=== PATIENT | male | born 1990 | race African-American/Black ===

== ENCOUNTER 2018-12-27 09:16 | Emergency (ER) | payer SELFPAY ==
[2018-12-27 09:31] VITALS: BP 137/75
[2018-12-27] MEDS ORDERED: METHOCARBAMOL 750 MG TABLET PO ONE (09:47)
[2018-12-27] MEDS ORDERED: IBUPROFEN 600 MG TABLET PO ONE (09:47)
--- NOTE | 2018-12-27 09:50 | ER Document Report ---
HPI - HPI Time Seen by Provider: 12/27/18 09:41 Notes: Patient is otherwise healthy 28-year-old male presenting to the emergency department with chief complaint of left-sided neck pain that radiates down into his left shoulder and left arm. Patient reports he woke up with this pain approximately 10 days ago. He denies taking any medications for this. He denies any direct trauma to the area. Past Medical History - General Information source: Patient - Social History Smoking Status: Never Smoker Frequency of alcohol use: None Drug Abuse: None Family History: None Pulmonary Medical History: Reports: Hx Asthma Surgical Hx: Negative - Immunizations Immunizations up to date: Yes Hx Diphtheria, Pertussis, Tetanus Vaccination: Yes Vertical Provider Document - CONSTITUTIONAL Notes: PHYSICAL EXAMINATION: GENERAL: Well-appearing, well-nourished and in no acute distress. HEAD: Atraumatic, normocephalic. EYES: Pupils equal round extraocular movements intact, conjunctiva are normal. ENT: Nares patent NECK: Normal range of motion LUNGS: No respiratory distress Musculoskeletal: Tenderness to palpation along left lateral neck and to left shoulder. No vertebral tenderness, step-off or deformity. NEUROLOGICAL: Normal speech, normal gait. PSYCH: Normal mood, normal affect. SKIN: Warm, Dry, normal turgor, no rashes or lesions noted. - INFECTION CONTROL TRAVEL OUTSIDE OF THE [place] IN LAST 30 DAYS: No Course - Re-evaluation Re-evalutation: Patient's history as well as exam are consistent with torticollis. No vertebral tenderness, step-off or deformity, no concern for meningitis as patient has been otherwise well and has not had fever or headache. Patient will be discharged home on muscle relaxers and instructed to take ibuprofen. Patient is in agreement with this plan. The patient's emergency department workup and current diagnosis were explained to the patient and or family. Follow-up instructions were provided. Medications if prescribed were discussed. Instructions for when to return to the emergency department including specific worrisome symptoms were discussed with the patient and/or family. - Vital Signs Vital signs: Temp Pulse Resp BP Pulse Ox 97.5 F 81 16 137/75 H 96 12/27/18 09:29 12/27/18 09:29 12/27/18 09:29 12/27/18 09:29 12/27/18 09:29 Discharge - Discharge Clinical Impression: Neck pain Left shoulder pain Qualifiers: Chronicity: acute Qualified Code(s): M25.512 - Pain in left shoulder Condition: Stable Disposition: HOME, SELF-CARE Additional Instructions: Please take medication as prescribed. Please also take ibuprofen 600 mg every 6 hours. I expect that your symptoms will improve over the next 3 to 5 days. Please return to the emergency department for worsening symptoms such as worsening pain, development of fever or inability to move your neck. Prescriptions: Methocarbamol [Robaxin 750 mg Tablet] 750 mg PO Q4 #20 tablet Forms: Return to Work
== END 2018-12-27 09:56 | disposition home or self-care (01) ==
LOC: ER 09:16
DX: M54.2 Cervicalgia (principal); M25.512 Pain in left shoulder
CPT/HCPCS: 99283; J3490

== ENCOUNTER 2019-09-17 11:05 | Emergency (ER) | payer SELFPAY ==
[2019-09-17] MEDS ORDERED: IBUPROFEN 800 MG TABLET PO ONE (11:23)
--- NOTE | 2019-09-17 11:26 | ER Document Report ---
ED Extremity Problem, Lower - General Chief Complaint: Foot Injury Stated Complaint: FALL/RIGHT FOOT PAIN Time Seen by Provider: 09/17/19 11:17 Primary Care Provider: SARTHAK HAGER DPM [ACTIVE STAFF] - Follow up as needed Mode of Arrival: Wheelchair Information source: Patient Notes: 28-year-old male presented to ED for complaint of right foot pain he [place] then [place] hit his foot on the stair above him. He states that was about 4 days ago. He states the pain has been continuously getting worse. He states his pain is a 3 out of 5 when he is resting and 5 out of 5 when he is walking. He states he does smoke 5 cigarettes a day drinks monthly does not do any illicit drugs. He works at [employer] and lives with his family. Patient is alert oriented respirations regular nonlabored speaking in full sentences. TRAVEL OUTSIDE OF THE [place] IN LAST 30 DAYS: No - HPI Patient complains to provider of: Injury, Pain Location: Foot - Right great toe and behind the great toe Occurred: Other - 4 days ago Where: Public place Onset/Duration: Gradual, Worse Quality of pain: Sharp Severity: Moderate Pain Level: 3 Context: Other - Hit toe on step Recent injury: Yes Associated symptoms: Painful ambulation Exacerbated by: Hanging down, Movement, Walking Relieved by: Elevation, Ice, Rest - Related Data Allergies/Adverse Reactions: No Known Allergies Allergy (Verified 12/27/18 09:48) Past Medical History - General Information source: Patient - Social History Smoking Status: Current Every Day Smoker Cigarette use (# per day): Yes - 5 cigarettes a day Smoking Education Provided: Yes - 4 minutes Frequency of alcohol use: Occasional Drug Abuse: None Lives with: Family Family History: None - Past Medical History Cardiac Medical History: Reports: None Pulmonary Medical History: Reports: Hx Asthma EENT Medical History: Reports: None Neurological Medical History: Reports: None Endocrine Medical History: Reports: None Renal/ Medical History: Reports: None Malignancy Medical History: Reports None GI Medical History: Reports: None Musculoskeletal Medical History: Reports None Skin Medical History: Reports None Psychiatric Medical History: Reports: None Traumatic Medical History: Reports: None Infectious Medical History: Reports: None Surgical Hx: Negative Past Surgical History: Reports: None - Immunizations Immunizations up to date: Yes Hx Diphtheria, Pertussis, Tetanus Vaccination: Yes Review of Systems - Review of Systems Constitutional: No symptoms reported EENT: No symptoms reported Cardiovascular: No symptoms reported Respiratory: No symptoms reported Gastrointestinal: No symptoms reported Genitourinary: No symptoms reported Male Genitourinary: No symptoms reported Musculoskeletal: Other - Right foot pain Skin: Other - Bruising to right great toe and just behind Hematologic/Lymphatic: No symptoms reported Neurological/Psychological: No symptoms reported -: Yes All other systems reviewed and negative Physical Exam - Vital signs Vitals: Temp Pulse Resp BP Pulse Ox 97.6 F 54 L 14 115/61 99 09/17/19 11:09 09/17/19 11:09 09/17/19 11:09 09/17/19 11:09 09/17/19 11:09 Interpretation: Normal - General General appearance: Appears well, Alert - HEENT Head: Normocephalic, Atraumatic Eyes: Normal Pupils: PERRL - Respiratory Respiratory status: No respiratory distress Chest status: Nontender Breath sounds: Normal Chest palpation: Normal - Cardiovascular Rhythm: Regular Heart sounds: Normal auscultation Murmur: No - Abdominal Inspection: Normal Distension: No distension Bowel sounds: Normal Tenderness: Nontender Organomegaly: No organomegaly - Back Back: Normal, Nontender - Extremities General upper extremity: Normal inspection, Nontender, Normal color, Normal ROM, Normal temperature General lower extremity: Normal color, Normal ROM, Normal temperature. No: Jenise's sign Foot: Tender, Ecchymosis, Edema, Metatarsal compress. pain, No evidence of FB - Neurological Neuro grossly intact: Yes Cognition: Normal Orientation: AAOx4 [place] Coma Scale Eye Opening: Spontaneous [place] Coma Scale Verbal: Oriented [place] Coma Scale Motor: Obeys Commands [place] Coma Scale Total: 15 Speech: Normal Motor strength normal: LUE, RUE, LLE, RLE Sensory: Normal - Psychological Associated symptoms: Normal affect, Normal mood - Skin Skin Temperature: Warm Skin Moisture: Dry Skin Color: Normal, Ecchymosis Location of irregularity: Extremities Irregularity with: Tenderness Course - Re-evaluation Re-evalutation: 09/17/19 13:07 X-ray demonstrated an old avulsion fracture to the first metatarsal phalangeal joint. There is no new injuries. He also has arthritis to the midfoot. Patient was given a copy of the written report of the x-ray and instructed to follow-up with podiatry. Patient was treated with ibuprofen and instructed to use ibuprofen at home. Patient alert oriented and was discharged home. - Vital Signs Vital signs: Temp Pulse Resp BP Pulse Ox 98.3 F 47 L 16 125/80 99 09/17/19 12:23 09/17/19 12:23 09/17/19 12:23 09/17/19 12:23 09/17/19 12:23 Procedures - Immobilization Right Foot Time completed: 12:18 Immobilizer type: Crutches Performed by: YAMILET Post-Proc Neuro Vasc Exam: Normal Alignment checked and good: Yes Discharge - Discharge Clinical Impression: Pain of right foot Condition: Stable Disposition: HOME, SELF-CARE Additional Instructions: You were seen today for contusion to the right foot. There is a old avulsion fracture to the first metatarsophalangeal joint which is the joint between the toe and the foot. This is chronic in appearance. You also have arthritis to the midfoot. I have given you a written report of the x-ray. Please go to a construction sales representative for further treatment for this foot. Ice & Elevation Apply ice packs frequently against the painful area. Many different schedules are recommended, such as "20 minutes on, 20 minutes off" or "one hour ice, two hours rest." If you need to work, you may need to go longer between ice treatments. You should plan to have the area ice packed AT LEAST one-fourth of the time. The ice should be applied over the wrap, tape, or splint, or over a layer of cloth -- not directly against the skin. Some ice bags have a built-in cloth and can be put directly on the skin. Your injured part should be elevated as much as possible over the next 48 hours. Try to keep the injury above the level of the heart. Avoid use of the injured area. Elevation and rest will decrease the swelling. Ibuprofen Ibuprofen is an excellent, safe drug for pain control. In addition, it has potent antiinflammatory effects which are beneficial, especially in the treatment of injuries, arthritis, or tendonitis. It's best to take ibuprofen with food. Persons with ulcer disease or allergy to aspirin should notify their physician of this before taking ibuprofen. Take the medication exactly as prescribed. Don't take additional doses unless instructed to do so by your doctor. If you develop wheezing, shortness of breath, hives, faintness, stomach pain, vomiting, or dark black stools, return for re-evaluation at once. FOLLOW-UP CARE: If you have been referred to a physician for follow-up care, call the physicians office for an appointment as you were instructed or within the next two days. If you experience worsening or a significant change in your symptoms, notify the physician immediately or return to the Emergency Department at any time for re-evaluation. Prescriptions: Ibuprofen [Motrin 600 mg Tablet] 600 mg PO Q8HP PRN #30 tablet PRN Reason: Forms: Smoking Cessation Education, Return to Work Referrals: SARTHAK HAGER DPM [ACTIVE STAFF] - Follow up as needed
--- NOTE | 2019-09-17 12:02 | RADIOLOGY REPORT (SQ) ---
EXAM DESCRIPTION: FOOT RIGHT COMPLETE IMAGES COMPLETED DATE/TIME: 09/17/2019 10:43 am REASON FOR STUDY: Pain great toe and behind great toe COMPARISON: None. NUMBER OF VIEWS: Three views. TECHNIQUE: AP, lateral and oblique radiographic images acquired of the right foot. LIMITATIONS: None. FINDINGS: MINERALIZATION: Normal. BONES: There is a tiny os ossific density measuring 3 mm adjacent to the medial aspect of the 1st dig it metatarsophalangeal joint space which may represent a tiny avulsion injury. No significant soft t issue swelling is associated. No acute displaced fracture, lytic or blastic bone lesion. Mild osteo arthritis at the midfoot. JOINTS: Normal joint space alignment. No joint effusion. SOFT TISSUES: No soft tissue swelling. No foreign body. OTHER: No other significant finding. IMPRESSION: Well corticated ossific density adjacent to the 1st digit metatarsophalangeal joint spac e may represent a chronic avulsion injury. 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 TECHNICAL DOCUMENTATION: JOB ID: [id number] 2010 [employer]- All Rights Reserved Reading location - IP/workstation name: [email or web address]
[2019-09-17 12:23] VITALS: BP 125/80
== END 2019-09-17 12:23 | disposition home or self-care (01) ==
LOC: ER 11:05
DX: S90.111A Contusion of right great toe without damage to nail, initial encounter (principal); W22.09XA Striking against other stationary object, initial encounter; M19.071 Primary osteoarthritis, right ankle and foot; Y93.02 Activity, running; F17.210 Nicotine dependence, cigarettes, uncomplicated; J45.909 Unspecified asthma, uncomplicated
CPT/HCPCS: 99283; 99406

== ENCOUNTER 2019-10-09 21:53 | Emergency (ER) | payer SELFPAY ==
[2019-10-10] MEDS ORDERED: PREDNISONE 20 MG TABLET PO ONE (00:19)
[2019-10-10] MEDS ORDERED: IPRATROPIUM/ALBUTEROL 0.5-2.5 MG/3 ML AMPUL NEB ONE (00:20)
[2019-10-10] MEDS ORDERED: BENZONATATE 100 MG CAPSULE PO ONE (00:20)
--- NOTE | 2019-10-10 00:57 | ER Document Report ---
HPI - HPI Time Seen by Provider: 10/09/19 23:38 Pain Level: 3 Notes: Otherwise healthy 28-year-old male presenting to the emergency department with chief complaint of cough, congestion and sore throat. Patient reports his daughter had similar symptoms over the last few days. He denies any known covert exposure. He is requesting a COVID-19 test today. He has not taken any medications for his symptoms. He states he has not had a fever but has had chills. - ROS Systems Reviewed and Negative: Yes All other systems reviewed and negative - CONSTITUTIONAL Constitutional: REPORTS: Chills - EENT EENT: REPORTS: Sore Throat, Congestion - RESPIRATORY Respiratory: REPORTS: Coughing - REPRODUCTIVE Reproductive: DENIES: : Past Medical History - General Information source: Patient - Social History Smoking Status: Current Every Day Smoker Frequency of alcohol use: None Drug Abuse: None Family History: None Patient has homicidal ideation: No - Medical History Medical History: Negative Surgical Hx: Negative - Immunizations Immunizations up to date: Yes Hx Diphtheria, Pertussis, Tetanus Vaccination: Yes Vertical Provider Document - CONSTITUTIONAL Notes: PHYSICAL EXAMINATION: GENERAL: Well-appearing, well-nourished and in no acute distress. HEAD: Atraumatic, normocephalic. EYES: Pupils equal round extraocular movements intact, conjunctiva are normal. ENT: Nares patent, oropharynx nonerythematous, no tonsillar swelling or exudates noted. Uvula midline. NECK: Normal range of motion, no cervical lymphadenopathy. LUNGS: No respiratory distress, lung sounds clear and equal bilaterally. Bronchospasm with cough. Musculoskeletal: Normal range of motion NEUROLOGICAL: Normal speech, normal gait. PSYCH: Normal mood, normal affect. SKIN: Warm, Dry, normal turgor, no rashes or lesions noted. - INFECTION CONTROL TRAVEL OUTSIDE OF THE [place] IN LAST 30 DAYS: No Course - Re-evaluation Re-evalutation: Patient appears well, nontoxic, vital signs reviewed and are within normal limits. Patient does have bronchospasm with deep breath. He will be given a DuoNeb treatment, prednisone, Tessalon Perles with plans to discharge home. Patient will be COVID-19 tested. ED return precautions discussed, patient verbalized understanding and agreement with same. - Vital Signs Vital signs: Temp Pulse Resp BP Pulse Ox 100.1 F 75 18 131/80 H 99 10/09/19 22:55 10/09/19 22:55 10/09/19 22:55 10/09/19 22:55 10/09/19 22:55 Discharge - Discharge Clinical Impression: Respiratory infection Condition: Stable Disposition: HOME, SELF-CARE Additional Instructions: I suspect your cough is coming from a viral infection. Your oxygen level is not so low that you need to be admitted. If simply walking across the room makes you feel like you are going to pass out or like you just walked up 2 flights of steps please return to the emergency department. Please let any healthcare personnel that you see know that you have been tested for coronavirus. This includes if you need to return to the emergency department. You were tested for coronavirus (COVID 19) but these results may take 7 days or more to come back. Please stay in your house until they are resulted back or until you have been completely symptom-free for at least 3 days. Prescriptions: Benzonatate [Tessalon Perles 100 mg Capsule] 1 - 2 tab PO Q8HP PRN #30 capsule PRN Reason: Prednisone [Deltasone 20 mg Tablet] 3 tab PO DAILY 5 Days #15 tablet
[2019-10-10 02:17] VITALS: BP 129/71
== END 2019-10-10 02:16 | disposition home or self-care (01) ==
LOC: ER 21:53
DX: R05 Cough (principal); R09.81 Nasal congestion; J02.9 Acute pharyngitis, unspecified; Z20.828 Contact with and (suspected) exposure to other viral communicable diseases; F17.200 Nicotine dependence, unspecified, uncomplicated
CPT/HCPCS: 94640; 99283; 87635; J7512; C9803